=== PATIENT | male | born 1965 | race Caucasian/White ===

== ENCOUNTER 2016-11-16 09:33 | Emergency (ER) | payer OTHER ==
[2016-11-16 09:50] VITALS: BP 131/78
--- NOTE | 2016-11-16 10:08 | ERNOTE ---
ENT HPI Presenting Symptoms: dental pain Time Seen by Provider: 11/16/16 09:57 Source: patient Exam Limitations: no limitations - Immun/Allergies/Home Medications Immunizations: IMMUNIZATION HX Immunizations Up to Date Yes History of Influenza Vaccine No Hx Pneumococcal Vaccination No Allergies/Adverse Reactions: Allergies Allergy/AdvReac Type Severity Reaction Status Date / Time No Known Allergies Allergy Verified 05/11/16 19:44 Home Medications: HOME MEDICATIONS Silver Sulfadiazine [Silvadene] 50 gm TP BID #1 jar 05/11/16 [Last Taken Unknown ] Amoxicillin Trihydrate [Amoxil] 500 mg PO TID #30 cap 11/16/16 [Last Taken Unknown] HYDROcodone/ACETAMINOPHEN [[place] 5-325] 1 tab PO Q4H PRN #30 tab 11/16/16 [Last Taken Unknown] - History of Present Illness Narrative: PAtient has a toothache in the right upper jaw. The tooth had been broken off of for a while, but the pain and swelling just started. Ibuprofen does not help , he also had a temp at home up to 101.8, denies any other symptoms, is trying to get in with a dentist Date (Duration): 11/14/16 Severity: Present: severe Review of Systems - Review of Systems Constitutional: Present: fever, chills EYE: Absent: double vision ENT: Present: ear pain. Absent: nose congestion, sore throat Respiratory: Absent: shortness of breath, cough Cardiology: Absent: chest pain Gastrointestinal/Abdominal: Absent: nausea, vomiting, diarrhea, abdominal pain Genitourinary: Present: no symptoms reported Musculoskeletal: Present: no symptoms reported Neurological: Absent: weakness, numbness - Patient's Past Medical History Patient History - Medical: GERD Patient History - Cardiac/Respiratory: No pertinent hx Patient History - Cancer: No Hx of Cancer Patient History - Surgical Procedures: Back Surgery Patient History - Other: None - Social History Living Situations: home Abuse History: No History of abuse Psych History: No pertinent hx Smoking Status: Current every day smoker Cigarettes Packs Per Day: 1 Have you smoked in the past 12 months: Yes Alcohol Use: none Drug Use: none - Immunizations Immunizations Up to Date: Yes Hx Pneumococcal Vaccination: No History of Influenza Vaccine: No Physical Exam - Physical Exam General Appearance: Present: wd/wn, alert, mild distress Eye Exam: Normal inspection: bilateral, PERRL: bilateral Ears, Nose, Throat: Present: normal pharynx, other - swelling and tenderness over right upper molar, slight swelling in face Neck: Present: lymphadenopathy (R). Absent: lymphadenopathy (L) Respiratory: Present: no respiratory distress, normal breath sounds, no accessory muscle use, chest nontender, lungs clear Cardiovascular/Chest: Present: regular rate, rhythm Neurological Exam: Present: alert, oriented, normal mood/affect Skin Exam: Present: normal color, warm/dry ED Progress - Vital Signs Patient's Vital Signs:: I have reviewed the patient's vital signs. Vital Signs: Vital Signs 11/16/16 09:46 Temperature 37.5 C Pulse Rate 105 H Respiratory 16 Rate Blood Pressure 131/78 O2 Sat by Pulse 96 Oximetry - Progress/Reassessment Chief Complaint: Dental Problem Departure Clinical Impression: Dental abscess - Departure Disposition: Home self-care Condition: Good Instructions: Dental Abscess, [id number] Additional Instructions: follow up with a dentist SALLIE Prescriptions: Amoxicillin Trihydrate [Amoxil] 500 mg PO TID #30 cap HYDROcodone/ACETAMINOPHEN [[place] 5-325] 1 tab PO Q4H PRN #30 tab PRN Reason: Pain
== END 2016-11-16 10:13 | disposition home or self-care (01) ==
LOC: ER 09:33
DX: K04.7 Periapical abscess without sinus (principal); F17.200 Nicotine dependence, unspecified, uncomplicated